=== PATIENT | female | born 1975 | race Caucasian/White ===

== ENCOUNTER 2017-07-30 22:24 | Emergency (ER) | payer OTHER ==
[2017-07-30] MEDS ORDERED: ONDANSETRON 4 MG/2 ML VIAL IVP ONE (22:31)
[2017-07-30] MEDS ORDERED: NS 1,000 ML IV ONE ×2 (22:31)
--- NOTE | 2017-07-30 22:31 | EDPHY ---
H & P Stated Complaint: V/D since 1900 and mid abd HPI/ROS: HPI CHIEF COMPLAINT: Nausea vomiting diarrhea HISTORY OF PRESENT ILLNESS: Patient is a 42-year-old female otherwise healthy, no significant medical history does not take any daily medications except control, she presents emergency room by private vehicle with her for nausea vomiting diarrhea that suddenly started around 7:00 p.m. tonight. Patient reports that she has had diffuse abdominal cramping associated with this. She denies any blood in her vomit or diarrhea. She denies fever. Denies chest pain or shortness of breath. States she vomited over a times. Watery diarrhea. She states recently her and child had an illness like this as well but not nearly as severe. She is unable to tolerate p.o. so decided come the emergency room for evaluation. Past Medical History: No significant medical history Past Surgical History: No significant surgical history Social History: Denies drugs alcohol tobacco. Family History: Noncontributory ROS REVIEW OF SYSTEMS: A comprehensive 10 point review of systems is otherwise negative aside from elements mentioned in the history of present illness. Exam Constitutional appears well nontoxic triage nursing summary reviewed, vital signs reviewed, awake/alert. Eyes normal conjunctivae and sclera, EOMI, PERRLA. HENT normal inspection, atraumatic, dry mucus membranes, no epistaxis, neck supple/ no meningismus, no raccoon eyes. Respiratory clear to auscultation bilaterally, normal breath sounds, no respiratory distress, no wheezing. Cardiovascular rate normal, regular rhythm, no murmur, no edema, distal pulses normal. Gastrointestinal soft, non-tender, no rebound, no guarding, normal bowel sounds, no distension, no pulsatile mass. Genitourinary no CVA tenderness. Musculoskeletal no midline vertebral tenderness, full range of motion, no calf swelling, no tenderness of extremities, no meningismus, good pulses, neurovascularly intact. Skin pink, warm, & dry, no rash, skin atraumatic. Neurologic awake, alert and oriented x 3, AAOx3, moves all 4 extremities equally, motor intact, sensory intact, CN II-XII intact, normal cerebellar, normal vision, normal speech. Psychiatric normal mood/affect. Heme/Lymph/Immune no lymphadenopathy. Differential Diagnosis: Includes but is not limited to in a particular order acute dehydration, electrolyte disturbance, viral syndrome, GI illness, norovirus, enteritis. Medical Decision Making: Plan for this patient IV establishment with IV fluid bolus 2 L normal saline for hydration, IV Zofran 4 mg for nausea, check basic electrolytes, check UA, CBC, lipase LFTs and re-evaluate. Most likely has a viral syndrome GI illness most likely norovirus. Re-evaluation: 1248: Patient re-examined at this time she is feeling much better after IV fluids nausea medicine and Pepcid. Re-examination her abdomen is soft nontender no guarding or peritoneal signs. She was vomiting. 0146: Re-examination this time patient resting comfortably no acute distress. Abdomen soft. P.o. challenge well. Blood work has been reviewed. Mild leukocytosis most likely from nausea vomiting. Return precautions discussed with the patient she understands return emergency room she develops worsening abdominal pain fever vomiting. Most likely cause of symptoms tonight acute GI illness. Source: Patient - Personal History LMP (Females 10-55): Over 28 Days Ago Current Tetanus/Diphtheria Vaccine: Yes Current Tetanus Diphtheria and Acellular Pertussis (TDAP): Yes - Medical/Surgical History Hx Asthma: No Hx Chronic Respiratory Disease: No Hx Diabetes: No Hx Cardiac Disease: No Hx Renal Disease: No Hx Cirrhosis: No Hx Alcoholism: No Hx HIV/AIDS: No Hx Splenectomy or Spleen Trauma: No Other PMH: knee surgery - Social History Smoking Status: Never smoked Constitutional: Initial Vital Signs Temperature (C) 37.9 C 07/30/17 22:25 Heart Rate 91 07/30/17 22:25 Respiratory Rate 20 07/30/17 22:25 Blood Pressure 127/88 H 07/30/17 22:25 O2 Sat (%) 100 07/30/17 22:25 O2 Delivery Mode Room Air Allergies/Adverse Reactions: No Known Allergies Allergy (Unverified 07/30/17 22:29) Home Medications: Medication Instructions Recorded Birthcontrol 07/30/17 Ondansetron HCl [Zofran] 4 mg PO Q4-6PRN PRN #10 tablet 07/31/17 Ranitidine HCl [Zantac] 150 mg PO DAILY #10 tablet 07/31/17 Medical Decision Making - Data Points Laboratory Results: Laboratory Results 07/30/17 22:53 07/30/17 22:53 07/31/17 07/30/17 07/30/17 01:05 22:53 22:53 WBC 15.24 10^3/uL H 10^3/uL (3.80-9.50) RBC 5.62 10^6/uL H 10^6/uL (4.18-5.33) Hgb 17.4 g/dL H g/dL (12.6-16.3) Hct 47.9 % H % (38.0-47.0) MCV 85.2 fL fL (81.5-99.8) MCH 31.0 pg pg (27.9-34.1) MCHC 36.3 g/dL g/dL (32.4-36.7) RDW 12.4 % % (11.5-15.2) Plt Count 341 10^3/uL 10^3/uL (150-400) MPV 9.7 fL fL (8.7-11.7) Neut % (Auto) 83.4 % H % (39.3-74.2) Lymph % (Auto) 11.0 % L % (15.0-45.0) [place] % (Auto) 3.3 % L % (4.5-13.0) Eos % (Auto) 1.3 % % (0.6-7.6) Baso % (Auto) 0.5 % % (0.3-1.7) Nucleat RBC Rel Count 0.0 % % (0.0-0.2) Absolute Neuts (auto) 12.72 10^3/uL H 10^3/uL (1.70-6.50) Absolute Lymphs (auto) 1.67 10^3/uL 10^3/uL (1.00-3.00) Absolute Monos (auto) 0.50 10^3/uL 10^3/uL (0.30-0.80) Absolute Eos (auto) 0.20 10^3/uL 10^3/uL (0.03-0.40) Absolute Basos (auto) 0.08 10^3/uL 10^3/uL (0.02-0.10) Absolute Nucleated RBC 0.00 10^3/uL 10^3/uL (0-0.01) Immature Gran % 0.5 % % (0.0-1.1) Immature Gran # 0.07 10^3/uL 10^3/uL (0.00-0.10) Sodium 139 mEq/L mEq/L (135-145) Potassium 3.8 mEq/L mEq/L (3.5-5.2) Chloride 103 mEq/L mEq/L (97-110) Carbon Dioxide 17 mEq/l L mEq/l (22-31) Anion Gap 19 mEq/L H mEq/L (8-16) BUN 15 mg/dL mg/dL (7-23) Creatinine 0.9 mg/dL mg/dL (0.6-1.0) Estimated GFR > 60 Glucose 113 mg/dL H mg/dL (70-100) Calcium 10.6 mg/dL H mg/dL (8.5-10.4) Total Bilirubin 0.8 mg/dL mg/dL (0.1-1.4) Conjugated Bilirubin 0.4 mg/dL mg/dL (0.0-0.5) Unconjugated Bilirubin 0.4 mg/dL mg/dL (0.0-1.1) AST 25 IU/L IU/L (14-46) ALT 31 IU/L IU/L (9-52) Alkaline Phosphatase 79 IU/L IU/L (38-126) Total Protein 8.0 g/dL g/dL (6.3-8.2) Albumin 5.0 g/dL g/dL (3.5-5.0) Lipase 104 IU/L IU/L (23-300) Urine Color YELLOW Urine Appearance CLEAR Urine pH 5.0 (5.0-7.5) Ur Specific [place] 1.019 (1.002-1.030) Urine Protein NEGATIVE (NEGATIVE) Urine Ketones 1+ H (NEGATIVE) Urine Blood NEGATIVE (NEGATIVE) Urine Nitrate NEGATIVE (NEGATIVE) Urine Bilirubin NEGATIVE (NEGATIVE) Urine Urobilinogen NEGATIVE EU EU (0.2-1.0) Ur Leukocyte Esterase NEGATIVE (NEGATIVE) Urine Glucose NEGATIVE (NEGATIVE) Medications Given: Discontinued Medications Famotidine (Pepcid) 20 mg IVP EDNOW ONE Stop: 07/30/17 23:37 Last Admin: 07/30/17 23:40 Dose: 20 mg Sodium Chloride (Ns) 1,000 mls @ 0 mls/hr IV EDNOW ONE; Wide Open PRN Reason: Protocol Stop: 07/30/17 22:32 Last Admin: 07/30/17 22:56 Dose: 1,000 mls Sodium Chloride (Ns) 1,000 mls @ 0 mls/hr IV EDNOW ONE; Wide Open PRN Reason: Protocol Stop: 07/30/17 22:32 Last Admin: 07/30/17 22:57 Dose: 1,000 mls Sodium Chloride (Ns) 1,000 mls @ 0 mls/hr IV ONCE ONE PRN Reason: Wide Open Stop: 07/31/17 00:27 Last Admin: 07/31/17 00:27 Dose: 1,000 mls Ondansetron HCl (Zofran) 4 mg IVP EDNOW ONE Stop: 07/30/17 22:32 Last Admin: 07/30/17 22:57 Dose: 4 mg Promethazine HCl (Phenergan) 6.25 mg IVP ONCE ONE Stop: 07/31/17 01:04 Last Admin: 07/31/17 01:12 Dose: 6.25 mg Departure - Departure Disposition: Home, Routine, Self-Care Clinical Impression: Nausea vomiting and diarrhea Condition: Good Instructions: Acute Nausea and Vomiting (ED) Additional Instructions: 1. Eros diet over the next 24-48 hours. No spicy fatty greasy foods. 2. Zofran as needed for nausea. 3. Return emergency room if he develops worsening abdominal pain fever vomiting Referrals: NONE *PRIMARY CARE P,. [Primary Care Provider] - As per Instructions Prescriptions: Ondansetron HCl [Zofran] 4 mg PO Q4-6PRN PRN #10 tablet PRN Reason: Nausea/Vomiting, Use 1st Ranitidine HCl [Zantac] 150 mg PO DAILY #10 tablet
[2017-07-30 23:01] LABS: PLATELET COUNT 341 10^3/uL (150-400)
[2017-07-30] MEDS ORDERED: FAMOTIDINE 20 MG/2 ML SDV IVP ONE (23:36)
[2017-07-31] MEDS ORDERED: NS 1,000 ML IV ONE (00:26)
[2017-07-31] MEDS ORDERED: PROMETHAZINE HCL 25 MG/ML INJ IVP ONE (01:03)
[2017-07-31] MEDS ORDERED: ONDANSETRON 4MG PREPACK#2 BTL TAKEHOME ONE (01:54)
[2017-07-31 02:10] VITALS: BP 108/71; PULSE 82; RESP 16; TEMP 98.2; O2SAT 97
== END 2017-07-31 02:10 | disposition home or self-care (01) ==
DX: R11.2 Nausea with vomiting, unspecified (principal); R19.7 Diarrhea, unspecified; E86.9 Volume depletion, unspecified
CPT/HCPCS: 96374; J2405; J2550

== ENCOUNTER 2018-11-01 19:12 | Emergency (ER) | payer OTHER ==
[2018-11-01] MEDS ORDERED: fentaNYL 100 MCG/2 ML INJ IVP ONE (19:22)
[2018-11-01] MEDS ORDERED: NS 1,000 ML IV ONE (19:22)
[2018-11-01] MEDS ORDERED: ONDANSETRON 4 MG/2 ML VIAL IVP ONE ×2 (19:22→20:45)
[2018-11-01 19:43] LABS: PLATELET COUNT 344 10^3/uL (150-400)
--- NOTE | 2018-11-01 19:52 | EDPHY ---
General Time Seen by Provider: 11/01/18 19:20 Narrative: CLINICAL IMPRESSION: Nausea vomiting and diarrhea ASSESSMENT/PLAN: 43-year-old female presents to the emergency department with approximately 4 hr of acute nausea vomiting and diarrhea. Patient is concerned she may have norovirus. She has ill family members at home. She arrives pale, actively vomiting, appearing generally unwell but was stable vital signs. Abdomen is mildly uncomfortable throughout without focal peritoneal findings. Labs reassuring with no significant electrolyte abnormality, renal insufficiency, or leukocytosis. No reports of bloody stools. Patient received IV fluids, antiemetics, and felt much better. Was able to tolerate water and ice chips. I suspect viral gastroenteritis. She will be discharged home with antiemetic therapy, PCP follow-up recommended, warning signs return to ER sooner discussed in discharge. DIFFERENTIAL DX: Abdominal pain includes but not limited to acute appendicitis, diverticulitis, cholecystitis, pancreatitis, SBO, gastroenteritis, dehydration ED PROCEDURES: See lab and/or imaging results below ED COURSE: Seen and assessed by myself. Plan for IV fluids, antiemetics, analgesics, labs , and p.o. Challenge. When ready 8:45 p.m.: Patient reporting feeling nauseous again. Second dose of Zofran given. 9:15 p.m.: Patient states she is still feeling nauseous despite 2nd dose of Zofran. Will try promethazine. 10:30 P.M.: Patient reassessed, feeling much better, has been able to keep down some water and ice chips. Would like to go home. CHIEF COMPLAINT: Nausea vomiting and diarrhea HPI: 43-year-old otherwise healthy female presents with 4 hr of nausea vomiting and diarrhea. Patient reports "this feels exactly like when I had norovirus in the past". She does have ill family members at home. No reports of fever or chills , significant abdominal pain, dysuria, flank pain, hematuria. No new foods. No travel outside the [place] Or recent antibiotics. PAST MEDICAL HISTORY: None reported See triage summary and nurse notes for addition applicable history Pertinent Past Surgical History: Ortho surgery Family History: Ill family members at home with GI symptoms Social History: Otherwise healthy REVIEW OF SYSTEMS: A full 10 point review of systems was negative except for those mentioned in HPI. PHYSICAL EXAM: General Appearance: Alert, oriented, appropriate, cooperative, appears queasy, well hydrated, ill appearing but nontoxic, VSS, no hypoxia. Respiratory: There are no retractions, lungs are clear to auscultation. Cardiac: Regular rate and rhythm, no murmurs or gallops. Gastrointestinal: Abdomen is soft, generalized mild discomfort throughout, bowel sounds normal, no masses/hernia, no rigidity, guarding or focal peritoneal findings. Skin: Warm, dry, no rashes, no nodules on palpation. MEDICAL DECISION MAKING: Patient was seen independently. Secondary supervising physician at time of evaluation was: Dr. Chowdary. Diagnosis: Acute nausea vomiting and diarrhea. New, requires workup Summary: See Assessment and Plan for summary of ED visit Clinical lab tests: ordered / reviewed. Patient Progress: Improved, stable for discharge . - History Smoking Status: Never smoked - Objective Vital Signs: Initial Vital Signs Temperature (C) 36.9 C 11/01/18 19:18 Heart Rate 84 11/01/18 19:18 Respiratory Rate 20 11/01/18 19:18 Blood Pressure 117/79 11/01/18 19:18 O2 Sat (%) 100 11/01/18 19:18 O2 Delivery Mode Room Air Allergies/Adverse Reactions: No Known Allergies Allergy (Unverified 11/01/18 19:17) Home Medications: Medication Instructions Recorded Promethazine HCl [Phenergan] 25 mg PO Q4 #10 tab 11/01/18 Laboratory Results: Laboratory Results 11/01/18 19:30 11/01/18 19:30 11/01/18 11/01/18 19:30 19:30 WBC 21.70 10^3/uL H 10^3/uL (3.80-9.50) RBC 5.46 10^6/uL H 10^6/uL (4.18-5.33) Hgb 16.4 g/dL H g/dL (12.6-16.3) Hct 47.0 % % (38.0-47.0) MCV 86.1 fL fL (81.5-99.8) MCH 30.0 pg pg (27.9-34.1) MCHC 34.9 g/dL g/dL (32.4-36.7) RDW 12.2 % % (11.5-15.2) Plt Count 344 10^3/uL 10^3/uL (150-400) MPV 9.7 fL fL (8.7-11.7) Neut % (Auto) 79.3 % H % (39.3-74.2) Lymph % (Auto) 11.9 % L % (15.0-45.0) [place] % (Auto) 6.3 % % (4.5-13.0) Eos % (Auto) 1.7 % % (0.6-7.6) Baso % (Auto) 0.5 % % (0.3-1.7) Nucleat RBC Rel Count 0.0 % % (0.0-0.2) Absolute Neuts (auto) 17.20 10^3/uL H 10^3/uL (1.70-6.50) Absolute Lymphs (auto) 2.59 10^3/uL 10^3/uL (1.00-3.00) Absolute Monos (auto) 1.37 10^3/uL H 10^3/uL (0.30-0.80) Absolute Eos (auto) 0.37 10^3/uL 10^3/uL (0.03-0.40) Absolute Basos (auto) 0.10 10^3/uL 10^3/uL (0.02-0.10) Absolute Nucleated RBC 0.00 10^3/uL 10^3/uL (0-0.01) Immature Gran % 0.3 % % (0.0-1.1) Immature Gran # 0.07 10^3/uL 10^3/uL (0.00-0.10) Sodium 134 mEq/L L mEq/L (135-145) Potassium 3.8 mEq/L mEq/L (3.5-5.2) Chloride 105 mEq/L mEq/L (97-110) Carbon Dioxide 16 mEq/l L mEq/l (22-31) Anion Gap 13 mEq/L mEq/L (6-14) BUN 14 mg/dL mg/dL (7-23) Creatinine 0.7 mg/dL mg/dL (0.6-1.0) Estimated GFR > 60 Glucose 90 mg/dL mg/dL (70-100) Calcium 10.3 mg/dL mg/dL (8.5-10.4) Medications Given: Discontinued Medications Fentanyl (Sublimaze) 50 mcg IVP EDNOW ONE Stop: 11/01/18 19:23 Last Admin: 11/01/18 19:35 Dose: 50 mcg Sodium Chloride (Ns) 1,000 mls @ 0 mls/hr IV EDNOW ONE; Wide Open PRN Reason: Protocol Stop: 11/01/18 19:23 Last Admin: 11/01/18 19:36 Dose: 1,000 mls Ondansetron HCl (Zofran) 4 mg IVP EDNOW ONE Stop: 11/01/18 19:23 Last Admin: 11/01/18 19:31 Dose: 4 mg Ondansetron HCl (Zofran) 4 mg IVP EDNOW ONE Stop: 11/01/18 20:46 Last Admin: 11/01/18 20:48 Dose: 4 mg Promethazine HCl (Phenergan) 12.5 mg IVP ONCE ONE Stop: 11/01/18 21:19 Last Admin: 11/01/18 21:25 Dose: 12.5 mg Promethazine HCl (Phenergan 25 Mg Prepack #4) 1 btl TAKEHOME EDNOW ONE Stop: 11/01/18 22:47 Last Admin: 11/01/18 22:53 Dose: 1 btl Departure - Departure Disposition: Home, Routine, Self-Care Clinical Impression: Nausea vomiting and diarrhea Condition: Fair Instructions: Promethazine (Into the rectum), Acute Nausea and Vomiting (ED) Additional Instructions: DISCHARGE INSTRUCTIONS FROM YOUR DOCTOR Thank you for visiting our emergency department today. You were treated by a physician preschool assistant principal today and your case was reviewed with our ED Attending physician. Please keep in mind that discharge from the emergency department does not mean that there is nothing wrong - it simply means that we have not identified an emergency condition that requires further evaluation or treatment in the hospital. You should always plan to follow up with primary care for re- evaluation of your condition in the next 2-3 days. If you have been referred to a specialist, please call as soon as possible (today or tomorrow) to schedule your follow up appointment at the appropriate time. PLEASE USE NAUSEA MEDICATION NEEDED. STAY WELL-HYDRATED WITH SLOW AMOUNTS OF FLUID OVER TIME. GRADUALLY ADVANCE HER DIET TOLERATED. FOLLOW UP WITH A PRIMARY CARE DOCTOR SATURDAY. RETURN TO THE EMERGENCY DEPARTMENT FOR PERSISTENT OR WORSENING VOMITING OR DIARRHEA, BLOODY STOOLS, FEVERS GREATER THAN 100.4, SEVERE ABDOMINAL PAIN, DIFFICULTY STAYING HYDRATED OR ANY OTHER CONCERNS. People present with illnesses and injuries in different ways, and it is always possible that we have missed something. You may always return for re-evaluation if symptoms worsen or if they are not improving or if you develop new/different symptoms. Again, thank you for choosing our emergency department. We hope that you feel better. Referrals: Unknown,Unknown [Primary Care Provider] - As per Instructions Tessie Shabazz MD [Medical Doctor] - 2-3 days without fail Prescriptions: Promethazine HCl [Phenergan] 25 mg PO Q4 #10 tab
[2018-11-01] MEDS ORDERED: PROMETHAZINE HCL 25 MG/ML INJ IVP ONE (21:18)
[2018-11-01] MEDS ORDERED: PROMETHAZINE 25 MG PREPACK #4 BTL TAKEHOME ONE (22:46)
[2018-11-01 22:59] VITALS: BP 117/73
== END 2018-11-01 22:58 | disposition home or self-care (01) ==
DX: R11.2 Nausea with vomiting, unspecified (principal); R19.7 Diarrhea, unspecified; E86.9 Volume depletion, unspecified
CPT/HCPCS: 96374; J2405; J2550; J3010